=== PATIENT | female | born 1985 | race Caucasian/White ===

== ENCOUNTER 2017-01-01 08:02 | Day surgery (SDC) | payer OTHER ==
[~2017-01-01] VITALS: Ht 165.1 cm; Wt 80.0 kg
[~2017-01-01 08:02] MED LIST: 0.9% Sodium Chloride 1,000 ML IV SCH; ACET325T51 PO; DOCU250C2 PO; POLY17PO6 PO; Sodium Chloride LOK Flush 10 mL Syringe IV PRN; fentaNYL-PF 50 mCg/mL 2 mL Inj IVPUSH PRN; marijuana ORAL
[2017-01-01 08:44] VITALS: BP 119/74; PULSE 70; RESP 12; O2SAT 99
[2017-01-01 09:29] VITALS: BP 120/70; PULSE 67; RESP 16; O2SAT 100
[2017-01-01 09:38] VITALS: BP 124/73; PULSE 81; RESP 16; O2SAT 99
--- NOTE | 2017-01-01 15:50 | ENDO ---
[address] [address] ENDOSCOPY PROCEDURE PATIENT: NAIF FARRIS : 1985 MR#: [id number] ADMIT: 01/01/2017 JOB ID: [id number] PROCEDURE: Colonoscopy. INDICATION: Change in bowel habits. Patient's ASA classification is II. Mallampati score is II. MEDICATIONS: Versed 5 mg, fentanyl 100 mcg. INSTRUMENT USED: PCF-H180AL. Prep quality was good. PROCEDURE DETAILS: After informed consent was obtained, the patient was brought to the GI suite, where she was placed on oxygen via nasal cannula and monitored with continuous pulse oximeter, telemetry, and blood pressure monitoring. A time-out was performed. Then, she was placed in a left lateral decubitus position and medications were administered for sedation. Digital rectal exam was performed and was unremarkable. The colonoscope was then inserted into the rectum and advanced under direct visualization to the terminal ileum which was identified by the presence of the ileocecal valve and villous-appearing mucosa of the terminal ileum. Once the terminal ileum was reached, the colonoscope was withdrawn back into the rectum. Mucosa and lumen were examined. In the rectum, retroflexion was performed. Following retroflexion, remaining air in the rectum was suctioned, and procedure was completed. FINDINGS: 1. Normal-appearing terminal ileum. Multiple random biopsies obtained. 2. Normal-appearing colon from rectum to cecum. Multiple random biopsies were obtained. IMPRESSION: Normal colonoscopy. RECOMMENDATIONS: 1. Await biopsy results. 2. Follow up in GI clinic. COMPLICATIONS: None. ESTIMATED BLOOD LOSS: Less than 5 mL. CC: Patient's primary care provider at the [facility].
--- NOTE | 2017-01-02 15:10 | PATH ---
SURGICAL PATHOLOGY Attending Physician:Ekaterina Carlson CASE STATUS: Signed Out PATIENT NAME: NAIF FARRIS PID: [id number] : 1985 DATE COLLECTED:01/01/2017 16:17 SPECIMEN: 1: Ileum, Biopsy 2: Colon, Biopsy CLINICAL HISTORY: CHANGE IN BOWEL 1). TERMINAL ILEUM BIOPSY 2). RANDOM COLON BIOPSY FINAL DIAGNOSIS: 1. Terminal Ileum, Biopsy: Portion of small bowel mucosa with no diagnostic abnormality. Negative for active inflammation, dysplasia, and malignancy. 2. Random Colon Biopsy: Superficial portions of colorectal mucosa with melanosis coli and no diagnostic abnormality. Negative for dysplasia and malignancy. There is no evidence of active inflammation, granulomas, or features of microscopic colitis. ICD10: K52.9 GROSS DESCRIPTION: The specimen is received in two formalin filled containers labeled with the patient's name. 1). The specimen is labeled " TI " and consists of a 0.2 x 0.2 x 0.2 CM portion of tissue which is entirely submitted in cassette 1A. 2). The specimen is labeled "random colon" and consists of multiple portions of tissue which aggregate to 0.6 x 0.4 x 0.2 CM. The specimen is entirely submitted in cassette 2A. 01/01/2017DC ICD-9 CODES: CPT CODES: 1: 90341 2: 77185 Electronically Signed Out Amarilis Burks MD [facility] Pathology [facility], [place] [address] Technical component performed at [facility], [address] [place] [address] Ave[address], [place], [address]
== END 2017-01-01 23:59 | disposition home or self-care (01) ==
LOC: END 08:02
PROVIDERS: ATTEND Internal Medicine Gastroenterology
DX: R19.4 Change in bowel habit (principal); J45.909 Unspecified asthma, uncomplicated; G43.909 Migraine, unspecified, not intractable, without status migrainosus; F12.90 Cannabis use, unspecified, uncomplicated; Z87.891 Personal history of nicotine dependence
CPT/HCPCS: 45380; G0500; J2250; J3010; J7030

== ENCOUNTER 2017-01-10 12:13 | Emergency (ER) | payer OTHER ==
[~2017-01-10] VITALS: Ht 165.1 cm; Wt 79.5 kg
[~2017-01-10 12:13] MED LIST changes: -0.9% Sodium Chloride 1,000 ML IV SCH; -Sodium Chloride LOK Flush 10 mL Syringe IV PRN; -fentaNYL-PF 50 mCg/mL 2 mL Inj IVPUSH PRN
[2017-01-10 12:22] VITALS: BP 121/79; PULSE 73; RESP 16; O2SAT 98
--- NOTE | 2017-01-10 12:27 | ED.REPORT ---
HPI-General Illness Date of Service Jan 10, 2017 ED Provider: Jake London MD A 31 year old female with a history of migraines is brought to the ED via EMS due to a sudden onset headache. The pt experienced a "lightning" headache at 10: 00 this morning. At onset, the headache was the worst that she has ever experienced and unlike any of her previous headaches. The pain is primarily in the front and radiates towards the back. The pt describes her pain as "pressure " accompanied by generalized weakness, nausea, photophobia, though she denies fever, diarrhea or abdominal pain. No other new complaints at this time. Nursing Notes Stated Complaint: MIGRAINE Chief Complaint: Headache Nursing Notes Reviewed: Yes Allergies: Coded Allergies: onabotulinumtoxinA (Verified Allergy, Severe, RASH, SHORTNESS OF BREATH, ) [id number]-[id number] Antimigraine Agents (Verified Allergy, Intermediate, ) gabapentin (Verified Allergy, Intermediate, DOUBLE VISION, 12/29/16) Scheduled Ciprofloxacin (Cipro) 250 Mg Tablet 250 MG PO TID Polyethylene Glycol 3350 (Miralax) 17 Gm Powd.pack 17 GM PO DAILY Scheduled PRN ([marijuana]) 1 TAB ORAL DIRECTED PRN PRN For Pain Acetaminophen (Acetaminophen) 325 Mg Tablet 325 MG PO Q4H PRN PRN For Pain Docusate Sodium (Docusate Sodium) 250 Mg Capsule 250 MG PO BID PRN PRN For Constipation General Time Seen by MD: 12:26 Chief Complaint Headache Hx Obtained From: Patient, EMS Arrived By: Ambulance Sudden in Onset?: Yes Onset Occurred: 5 - 8 hours ago Symptom Duration: Since onset Location: : Head Quality: Pressure Severity: Maximum: Severe Recent Healthcare: Recent doctor visit Similar Sx Previous: No Past Medical History Past Medical History asthma rectal bleeding recent weight loss (20 pounds over 3 months, as of 12/2016) migraines Past Surgical History T&A breast reduction Reports: Appendectomy Smoking History Never Smoker Social History Drug Use: THC Other Social History: Good social support Ambulatory Status Independent Review of Systems Full Review of Systems Constitutional: Reports: Chills, Weakness - generalized, Denies: Fever Eyes: Reports: Photophobia Respiratory: Reports: Shortness of breath, Denies: Non-productive cough Cardiovascular: Denies: Chest pain GI: Reports: Nausea, Denies: Abdominal pain, Diarrhea Neurologic: Reports: Headache Psychiatric: Reports: Confusion Complete sys rev & neg: except as marked. Physical Exam Constitutional: Well-developed, well-nourished. Not diaphoretic. Head: Normocephalic and atraumatic. Mouth/Throat: Oropharynx is clear and moist. No oropharyngeal exudate. Eyes: EOM are normal. Pupils are equal, round, and reactive to light. Neck: Supple, no tracheal deviation. Cardiovascular: Normal rate, regular rhythm. Equal and intact distal pulses throughout. Pulmonary/Chest: Effort normal and breath sounds normal. No respiratory distress. Abdominal: Soft. No distension. There is no tenderness, rebound, or guarding. Musculoskeletal: Range of motion grossly intact, moving all extremities. Neurological: AOx3. Grossly nonfocal exam. Strength and sensation intact and equal to bilateral upper and lower extremities. Normal finger to nose testing. Skin: Warm and dry, no rashes or pallor appreciated. Psychiatric: Appropriate mood and affect. Behavior appears normal. Vital Signs Vital Signs Date Time Temp Pulse Resp B/P Pulse Ox O2 Delivery O2 Flow Rate FiO2 01/10/17 22:34 78 18 128/85 98 01/10/17 19:21 16 107/68 100 Room Air 01/10/17 15:21 36.7 92 16 153/90 100 Room Air 01/10/17 12:22 36.8 73 16 121/79 98 Room Air Initial VS: Reviewed, Vital signs normal Interpretation & Diagnostics Lab Results Interpretation Result Diagram: 01/10/17 1245 01/10/17 1245 Test 01/10/17 12:45 01/10/17 15:28 01/10/17 16:46 01/10/17 21:28 White Blood Count 9.0th/mm3 (3.8-10.1) Red Blood Count 4.64mil/mm3 (3.90-5.20) Hemoglobin 14.1g/dL (12.0-15.6) Hematocrit 39.9% (35.0-46.0) Mean Corpuscular Volume 86.0fL (81-100) Mean Corpuscular Hemoglobin 30.4pg (27.0-35.0) Mean Corpuscular Hemoglobin Concent 35.3% (32.0-37.0) Red Cell Distribution Width 11.7% (12.3-15.4) Platelet Count 276bil/L (150-400) Neutrophils (%) (Auto) 62.9% (40-74) Lymphocytes (%) (Auto) 22.9% (14-46) Monocytes (%) (Auto) 12.1% (4-12) Eosinophils (%) (Auto) 1.6% (0-5) Basophils (%) (Auto) 0.4% (0-3) Hold Purple Top Tube Received (Received) Prothrombin Time 10.8sec (8.1-12.5) Prothromb Time International Ratio 1.01ratio Hold Blue Top Tube Received (Received) Sodium Level 137mEq/L (134-144) Potassium Level 3.5mEq/L (3.5-5.2) Chloride Level 103mEq/L (97-108) Carbon Dioxide Level 18mmol/L (18-29) Blood Urea Nitrogen 12mg/dL (6-20) Creatinine 0.54mg/dL (0.57-1.00) Estimat Glomerular Filtration Rate 187mL/min (>59) Glucose Level 133mg/dL (60-99) Calcium Level 9.3mg/dL (8.5-10.1) Hold Shepherd Top Tube Received (Received) Hold Urine Received (Received) Urine Color Yellow (YELLOW) Urine Appearance Clear (CLEAR,HAZY) Urine pH 8.0 (5.0-8.0) Urine Specific [place] 1.010 (1.003-1.035) Urine Protein Negativemg/dL (NEG,TRACE) Urine Glucose (UA) Negativemg/dL (NEGATIVE) Urine Ketones Negativemg/dL (NEGATIVE) Urine Occult Blood Negative (NEGATIVE) Urine Nitrite Negative (NEGATIVE) Urine Bilirubin Negative (NEGATIVE) Urine Urobilinogen Normalmg/dL (NORMAL) Urine Leukocyte Esterase Moderate (NEGATIVE) Urine RBC 0-2/hpf (0-2) Urine WBC 6-10/hpf (0-5) Urine Epithelial Cells Moderate/hpf (NONE-MOD) Urine Crystals None seen (NONE SEEN) Urine Bacteria Moderate/hpf (NONE-FEW) Urine Hyaline Casts None/lpf (NONE) Urine Granular Casts None seen (NONE SEEN) Urine Waxy Casts None seen (NONE SEEN) Urine Red Blood Cell Casts None seen (NONE SEEN) Urine White Blood Cell Casts None seen (NONE SEEN) Urine Mucus None seen (None Seen) Urine Trichomonas None seen (NONE SEEN) Urine Yeast None (NONE SEEN) Urinalysis Comment None Urine Culture Reflexed Indicated CSF Appearance Clear (CLEAR) CSF Color Colorless (COLORLESS) CSF WBC 0/mm3 (0-5) CSF RBC 0/mm3 CSF Mononuclear WBCs % CSF Polynuclear WBCs % CSF Other Cells CSF Glucose 62mg/dL (45-90) CSF Total Protein 29mg/dL (15-45) CT Head Interpretation IMPRESSION: No source of headache is found. Dictated by: Gabriel Arnett M.D. on 01/10/2017 at 16:23 Approved by: Gabriel Arnett M.D. on 01/10/2017 at 16:23 Study: Head CT no contrast Interpretation / Wet Read by: Interpret - Radiologist Procedures Lumbar Puncture Time: 17:45 Procedure Performed by: ED physician Consent / Setup / Site Prep: Informed consent provided, Consent from patient , Time-out performed, Hand hygiene observed, Stand sterile technique, Sterile drapes applied Skin Preparation Agent: Betadine Local Anesthesia: Lidocaine w epi 1% LP Needle Gauge: 20 Inserted Needle at: L4 L5 Second Attempt at: L4 L5 Post-Procedure / Complications: No complications, Tolerated procedure well Re-Eval/Medical Decision Med Decision/Clinical Course In summary, 31-year-old female presenting to the ED for evaluation of a sudden, maximal at onset, worst of life headache that occurred several hours prior to arrival. Initial noncontrast head CT negative for bleed or other acute intra- cranial abnormality. She has a nonfocal neurologic exam. No fever, well- appearing, no meningismus; doubt meningitis. No temporal tenderness to palpation. Given her story, concern for subarachnoid hemorrhage and lumbar puncture performed as per above. Secondary to patient's body habitus, procedure was aborted after several attempts and decision was made to obtain a fluoroscopy guided lumbar puncture. This did not demonstrate any evidence of subarachnoid hemorrhage or signs of infection. Given IV fluids, Benadryl, Dilaudid, Phenergan with some improvement in symptoms. Her CBC and BMP are grossly within normal limits; urinalysis appears to be somewhat contaminated, however may be consistent with a urinary tract infection. Plan to write a prescription for and have her follow-up with her PCP in the next 1-2 days for reevaluation of this and her other complaint. Very careful return precautions were discussed with the patient length, and she was agreeable to the plan as stated. No further questions at this time. Source of Hx: Old records Consultation : Call Returned at: 18:03 Checkroom Attendant: Agrees with eval, Agrees with plan Note: Consulted IR to perform LP under fluoro. Counseled Regarding: Diagnosis, Lab results, Need for follow-up, When/why to return to ED Discharge & Departure Primary Impression: Headache Headache type: unspecified Headache chronicity pattern: acute headache Intractability: not intractable Qualified Code: R51 - Headache Additional Impression: UTI (urinary tract infection) Urinary tract infection type: site unspecified Hematuria presence: without hematuria Qualified Code: N39.0 - Urinary tract infection, site not specified Disposition: Home Discharge Condition All VS Reviewed: Yes Condition: Improved Referrals: [facility] (PCP) Crit Care Except Billable Proc Time Spent: 30-74 minutes Services Performed: Patient management by me, Time spent at bedside, Reviewing test results, Reviewing imaging, Discussing patient care, Documentation in record, Time with fam/surrogate Critical Care Notes: Please see MDM. Lumbar puncture needed to rule out life threatening subarachnoid hemorrhage in a patient with a highly concerning story. Extensive time spent discussing this with patient, discussing with interventional radiology, and with management above. This was independent of time spent on procedure itself. Scribe Attestation Portions of this note were transcribed by Aamir Kate and Cresencio Bernstein. I, Dr. London personally performed the history, physical exam and medical decision-making; I reviewed and confirmed the accuracy of the information in the transcribed note. copies to: [facility] Jake London MD Jan 10, 2017 12:27 AAMIR KATE Jan 10, 2017 14:43 CRESENCIO BERNSTEIN Jan 10, 2017 15:35
[2017-01-10] MEDS ORDERED: HYDROmorphone 0.5 mg/0.5 mL iSecure Syringe IVPUSH ONE (14:35)
[2017-01-10] MEDS ORDERED: Promethazine Inj 25 MG in 0.9% Sodium Chloride 50 ML IV ONE (14:35)
[2017-01-10] MEDS ORDERED: 0.9% Sodium Chloride 1,000 ML IV ONE (14:35)
[2017-01-10 14:43] LABS: BASOPHILS % (AUTO) 0.4 % (0-3); EOSINOPHILS % (AUTO) 1.6 % (0-5); MONOCYTES % (AUTO) 12.1 % (4-12); Mean Corpuscular Hemoglobin 30.4 pg (27.0-35.0); NEUTROPHILS % (AUTO) 62.9 % (40-74); Platelet Count 276 bil/L (150-400)
[2017-01-10] MEDS ORDERED: Lidocaine 1%/Epi 1:100,000 30 mL MDV ONE (15:07)
[2017-01-10 15:21] VITALS: BP 153/90; PULSE 92; RESP 16; O2SAT 100
--- NOTE | 2017-01-10 16:25 | DRSVH ---
PROCEDURE: CT BRAIN WITHOUT CONTRAST ([id number]) INDICATIONS: headache, eval bleed, other abnl TECHNIQUE: Noncontrast 4.5 mm thick angled axial sections acquired from the foramen magnum to the vertex, with c oronal reformats. COMPARISON: None. FINDINGS: Image quality: Excellent. CSF spaces: Basal cisterns are patent. No extra-axial fluid collections. Ventricles are normal in size and shape. Brain: No midline shift. No intracranial masses or hemorrhage. Chiang-white matter interface is norm al. Skull and face: Calvarium and visualized facial bones are intact, without suspicious lesions. Sinuses: Visualized sinuses and mastoids are clear. IMPRESSION: No source of headache is found. Dictated by: Gabriel Arnett M.D. on 01/10/2017 at 16:23 Approved by: Gabriel Arnett M.D. on 01/10/2017 at 16:23
[2017-01-10 17:30] LABS: APPEARANCE,URINE CLEAR (CLEAR,HAZY); COLOR,URINE YELLOW (YELLOW)
[2017-01-10 17:31] LABS: OCCULT BLOOD,URINE NEGATIVE (NEGATIVE); UROBILINOGEN,URINE NORMAL (NORMAL)
[2017-01-10 18:57] LABS: INR 1.01 ratio
[2017-01-10 19:21] VITALS: BP 107/68; RESP 16; O2SAT 100
[2017-01-10] MEDS ORDERED: HYDROmorphone 1 mg/mL Inj IVPUSH ONE (20:20)
[2017-01-10] MEDS ORDERED: CIPR-232 PO (21:34)
--- NOTE | 2017-01-10 21:39 | DRSVH ---
PROCEDURE: X-RAY LUMBAR PUNCTURE ([id number]) INDICATIONS: sudden onset headache; eval SAH TECHNIQUE: The indications, alternatives, benefits, risks, and complications were explained to the patient. Lj luciano informed consent was obtained and placed in the chart. The patient was placed in a prone positi on on the fluoroscopy table, and a level was chosen for percutaneous access under fluoroscopic guidan ce. The site was prepped and draped in a sterile fashion. After local anaesthetic, a spinal needle was then used to enter the intrathecal space, with return of cerebrospinal fluid. After obtaining sufficient fluid, the needle was then withdrawn, and a bandage applied to the punctur e site. FINDINGS: Puncture level: L4-L5 Needle: Spinal needle. Opening pressure: 25 cm H2O. CSF volume and description: 11 cc of clear CSF Medications: 1% lidocaine for anaesthesia. Complications: None Laboratories: As ordered by referring clinician. IMPRESSION: Successful fluoroscopically guided lumbar puncture. Dictated by: Bert Gallardo M.D. on 01/10/2017 at 21:36 Approved by: Bert Gallardo M.D. on 01/10/2017 at 21:37
[2017-01-10 21:45] LABS: APPEARANCE,CSF CLEAR (CLEAR); COLOR,CSF COLORLESS (COLORLESS); WHITE BLOOD CELL,CSF 0 /mm3 (0-5)
[2017-01-10 22:34] VITALS: BP 128/85; PULSE 78; RESP 18; O2SAT 98
== END 2017-01-10 22:35 | disposition home or self-care (01) ==
LOC: SED 12:13 → EDBD 12:13 → EDUNIT# 12:13 → SED 22:35
DX: R51 Headache (principal); N39.0 Urinary tract infection, site not specified; J45.909 Unspecified asthma, uncomplicated; Z88.8 Allergy status to other drugs, medicaments and biological substances
CPT/HCPCS: 36415; 62270; 70450; 77003; 80048; 81000; 82945; 83605; 84155; 85025; 85610; 87070; 87086; 87088; 87205; 89051; 96361; 96374; 96375; 96376; 99291; J1170; J1200; J2550; J7030

== ENCOUNTER → 2017-03-01 | Day surgery (SDC) | payer OTHER ==
[~2017-03-01] MED LIST changes: +Lactated Ringer's 1,000 ML IV ONE
--- NOTE | 2017-03-01 07:58 | PCM.HPANE ---
Patient Data Surgeon Admitting Provider: Attending Provider:Hilda Javier MD [facility] Other Provider:José Sanchez Anesthesia Reason for Visit Early Satiety Ht/WT & BMI Body Mass Index Allergies Coded Allergies: onabotulinumtoxinA (Verified Allergy, Severe, RASH, SHORTNESS OF BREATH, ) Rtvypdpz-[id number] Antimigraine Agents (Verified Allergy, Intermediate, ) gabapentin (Verified Allergy, Intermediate, DOUBLE VISION, 12/29/16) Past Anesthesia History Anesthesia History: Denies:: Anesthesia Reactions, Fam Anesthesia Reaction, Fam Malignant Hypertherm, Malignant Hyperthermia Diabetes History Hx Diabetes?: No MRSA MRSA: No Medications Reported Medications Polyethylene Glycol 3350 (Miralax)17 Gm Powd.pack17 Gm PO DAILY 12/29/16 [marijuana] No Conflict Check1 Tab ORAL DIRECTED PRN For Pain 12/29/16 Docusate Sodium 250 Mg [id number] Mg PO BID PRN For Constipation Ref 0 12/29/16 Acetaminophen 325 Mg [id number] Mg PO Q4H PRN For Pain Ref 0 12/29/16 Discontinued Scripts Ciprofloxacin (Cipro)250 Mg [id number] Mg PO TID #9 TABLET Ref 0 Prov:Jake London MD 01/10/17 History History of ENT Problems?: No HEENT History: Denies:: Abnormal Airway Denture Type: None Teeth Condition: Within Normal Limits Hx of Heart Problems?: No Cardiovascular History: Denies:: Congestive Heart Failure Hypertension Hx of Respiratory Problem?: No Respiratory History: Positive for:: Asthma (EXPOSURE INDUCED) Denies:: Tuberculosis Hx Neurologic Problems?: No Neurological History: Denies:: CVA Hx of GI Problems?: No Hx of Problems?: No Female Hx: Denies:: Currently Hx Musculoskeletal Problems?: No Hx Surgeries?: Yes (T&A, BREAST REDUCTION, APPY) Hx Any Other Health Problems?: No Hx Diabetes: No Hx Alcohol Use: NoHx Substance Use: Yes (marijuana) Smoking Status: Never Smoker Stop/Bang Risk Assessment Category Category 1A: Patient has history of documented sleep apnea, and HAS NOT received any narcotic, sedative or anesthesia administration during this stay. Category 1B: Patient has history of documented sleep apnea, and HAS received any narcotic , sedative or anesthesia administration during this stay Category 2: Patient has SUSPECTED Obstructive Sleep Apnea, and HAS received any narcotic , sedative or anesthesia administration during this stay. Category 3: Patient has SUSPECTED Obstructive Sleep Apnea and HAS NOT received narcotic, sedative or anesthesia administration during this stay. Category 4: Outpatient in Procedural Areas with known sleep apnea or who screen positive for High Risk via the STOP/BANG questionnaire. Exam Exam General Appearance: Alert, Oriented X3, Cooperative, No Acute Distress HEENT/AIRWAY: MP 2 Lungs: Clear to Auscultation, Normal Air Movement Heart: Exam Unremarkable, Regular Rate/Rhythm, No Murmurs/Rubs/Gallops Plan Impression Patient chart reviewed, patient interviewed and anesthestic plan with risks, benefits, and alternatives discussed, and informed consent obtained. NPO per Anesth. Guidelines: Yes Anesthetic Plan: GA Bene/Risks/Altern/Consents: Yes HP Complete Prior to Induction: Yes Other patient cancelled procedure. Please disregard this note Gabriel Grossman MD Mar 01, 2017 07:58
== END | disposition home or self-care (01) ==
LOC: END 00:42
PROVIDERS: ATTEND Internal Medicine Gastroenterology
DX: R68.81 Early satiety (principal); Z53.8 Procedure and treatment not carried out for other reasons